=== PATIENT | female | born 1995 | race Two or more races ===

== ENCOUNTER 2019-10-10 14:33 | Emergency (ER) | payer MEDICAID ==
[~2019-10-10] VITALS: Ht 157.5 cm; Wt 68.0 kg
[2019-10-10 16:24] VITALS: BP 100/71
== END 2019-10-10 18:12 | disposition home or self-care (01) ==
LOC: ER 14:37
DX: J03.90 Acute tonsillitis, unspecified (principal)

== ENCOUNTER 2024-05-23 09:42 | Emergency (ER) | payer MEDICAID ==
[~2024-05-23] VITALS: Ht 160 cm; Wt 71.0 kg
[2024-05-23] MEDS ORDERED: CEPH500C PO (10:21)
[2024-05-23 10:26] VITALS: BP 124/81; PULSE 82; RESP 16; TEMP 98.5; O2SAT 98
[2024-05-23] MEDS: LIDOCAINE 1% HCL (LOCAL ANESTH.) INJ 20ML MDV IJ ONE (10:32)
== END 2024-05-23 10:32 | disposition home or self-care (01) ==
LOC: ER 09:42
DX: S61.412A Laceration without foreign body of left hand, initial encounter (principal); Z79.899 Other long term (current) drug therapy; W45.8XXA Other foreign body or object entering through skin, initial encounter; Y93.89 Activity, other specified; Y92.89 Other specified places as the place of occurrence of the external cause; Y99.8 Other external cause status
CPT/HCPCS: 12002